=== PATIENT | male | born 1940 | race Caucasian/White ===

== ENCOUNTER 2016-06-29 16:49 | Inpatient (IN) | payer OTHER, MEDICARE ==
[~2016-06-29] VITALS: Ht 177.8 cm; Wt 87.2 kg
--- NOTE | 2016-06-29 16:53 | PD ---
HPI . right great toe injury while fishing Chief Complaint: Injury Time Seen by Provider: 16:53 Travel History International Travel<30 days: No Contact w/Intl Traveler<30days: No Traveled to known affect area: No History of Present Illness HPI 76-year-old male with history of diabetes, hypertension, CAD, old heart attack, defibrillator/pacemaker, or disorder here with complaints of a right great toe injury while fishing. Patient was fishing and states that he tripped and cut his right great toe on a clamshell. He was brought in the [facility] as his toe is partially hanging on. He denies any pain on examination. 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 He is up to date on tetanus vaccine and received it last year. He needs immediate xray and podiatry was consulted. [facility] Past Medical History Diabetes: Yes Hypertension: Yes Myocardial Infarction: Yes Past Surgical History Coronary Artery Bypass Graft: Yes Pacemaker: Yes Social History Tobacco Use: Yes Allergies-Medications (Allergen,Severity, Reaction): Coded Allergies: No Known Allergies (Unverified , 06/29/16) Reported Meds & Prescriptions Reported Meds & Active Scripts Active Reported Lyrica (Pregabalin) 150 Mg Cap 150 Mg PO TID Lactobacillus Acidophilus 1 Tab Tab 2 Tab PO DAILY Lisinopril 10 Mg Tab 10 Mg PO DAILY Meclizine (Meclizine HCl) 25 Mg Tab 25 Mg PO TID PRN Januvia (Sitagliptin Phosphate) 100 Mg Tab 100 Mg PO DAILY Clonazepam 2 Mg Tab 2 Mg PO HS Digoxin 0.125 Mg Tab 0.125 Mg PO DAILY Tamsulosin (Tamsulosin HCl) 0.4 Mg Cap 0.4 Mg PO HS Carvedilol 6.25 Mg Tab 6.25 Mg PO BID Creon (Amylase/Lipase/Protease) 24,000-76,000-120,000 Units Cap 1 Cap PO TIDPC Ditropan (Oxybutynin Chloride) 5 Mg Tab 5 Mg PO Q12HR Donepezil 10 Mg Tab 10 Mg PO HS Review of Systems General / Constitutional: No: Fever Eyes: No: Visual changes HENT: No: Headaches Cardiovascular: No: Chest Pain or Discomfort Respiratory: No: Shortness of Breath Gastrointestinal: No: Abdominal Pain Genitourinary: No: Dysuria Musculoskeletal: Positive: Other (right great toe partial amputation), No: Pain Skin: No Rash Neurologic: No: Weakness Psychiatric: No: Depression Endocrine: No: Polydipsia Hematologic/Lymphatic: No: Easy Bruising Physical Exam Narrative GENERAL: AAO x 3, no acute distress, Well-nourished, well-developed patient. SKIN: Warm and dry. No visible rashes or bruising. HEAD: Normocephalic and atraumatic. EYES: No scleral icterus. No injection or drainage. ENT: No nasal drainage noted. Mucous membranes pink. Airway patent. NECK: Supple, trachea midline. No JVD. CARDIOVASCULAR: Regular rate and rhythm. RESPIRATORY: Breath sounds equal bilaterally. No accessory muscle use. No rhonchi or rales. GASTROINTESTINAL: Abdomen soft, non-tender, nondistended. EXTREMITIES: No cyanosis or edema. Right great toe partial amputation at distal end.There seems to be bone involvement. Sensation is intact. BACK: Nontender without obvious deformity. No CVA tenderness. PSYCH: AAO x 3, normal affect. Data Data Last Documented VS Vital Signs Date Time Temp Pulse Resp B/P Pulse Ox O2 Delivery O2 Flow Rate FiO2 06/29/16 16:57 97.3 54 16 148/85 98 Orders Foot, Complete (Ryt4iqu) (06/29/16 16:53) Lidocaine 1% Inj (50 Ml) (Xylocaine 1% I (06/29/16 17:30) Complete Blood Count With Diff (06/29/16 17:33) Comprehensive Metabolic Panel (06/29/16 17:33) Consult Podiatry (06/29/16 ) Prothrombin Time / Inr (Pt) (06/29/16 18:26) Act Partial Throm Time (Ptt) (06/29/16 18:26) (Hub Use Only)Inp Phy Cons/Ref (06/29/16 ) Diet Npo (06/29/16 Dinner) Admit Order (Ed Use Only) (06/29/16 19:05) Labs Laboratory Tests Test 06/29/16 18:00 White Blood Count 9.9 TH/MM3 Red Blood Count 5.18 MIL/MM3 Hemoglobin 16.0 GM/DL Hematocrit 46.5 % Mean Corpuscular Volume 89.8 FL Mean Corpuscular Hemoglobin 30.8 PG Mean Corpuscular Hemoglobin 34.3 % Concent Red Cell Distribution Width 12.8 % Platelet Count 164 TH/MM3 Mean Platelet Volume 9.2 FL Neutrophils (%) (Auto) 67.7 % Lymphocytes (%) (Auto) 21.5 % Monocytes (%) (Auto) 6.7 % Eosinophils (%) (Auto) 3.3 % Basophils (%) (Auto) 0.8 % Neutrophils # (Auto) 6.7 TH/MM3 Lymphocytes # (Auto) 2.1 TH/MM3 Monocytes # (Auto) 0.7 TH/MM3 Eosinophils # (Auto) 0.3 TH/MM3 Basophils # (Auto) 0.1 TH/MM3 CBC Comment DIFF FINAL Differential Comment Prothrombin Time 11.4 SEC Prothromb Time International 1.0 RATIO Ratio Activated Partial 27.8 SEC Thromboplast Time Sodium Level 141 MEQ/L Potassium Level 3.6 MEQ/L Chloride Level 106 MEQ/L Carbon Dioxide Level 25.4 MEQ/L Anion Gap 10 MEQ/L Blood Urea Nitrogen 12 MG/DL Creatinine 1.00 MG/DL Estimat Glomerular Filtration 73 ML/MIN Rate Random Glucose 131 MG/DL Calcium Level 9.2 MG/DL Total Bilirubin 0.5 MG/DL Aspartate Amino Transf 53 U/L (AST/SGOT) Alanine Aminotransferase 40 U/L (ALT/SGPT) Alkaline Phosphatase 119 U/L Total Protein 7.9 GM/DL Albumin 3.7 GM/DL [facility] Medical Decision Making Medical Screen Exam Complete: Yes Emergency Medical Condition: Yes Medical Record Reviewed: Yes Differential Diagnosis partial toe amputation, distal tuft fracture, abrasion Narrative Course 76-year-old male with history of diabetes, hypertension, CAD, old heart attack, defibrillator/pacemaker, or disorder here with complaints of a right great toe injury while fishing. Patient was fishing and states that he tripped and cut his right great toe on a clamshell. He was brought in the [facility] as his toe is partially hanging on. He denies any pain on examination. 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 He is up to date on tetanus vaccine and received it last year. He needs immediate xray and podiatry was consulted. Patient seen and examined. Case discussed with Dr. Danielson. We have reached out to podiatry for consultation. (Dr. Rodgers) Recommend admission, IV antibiotics and surgical cleaning of this wound tomorrow. Patient has been admitted and will be prepped for this procedure. Laboratory Tests Test 06/29/16 18:00 White Blood Count 9.9 TH/MM3 Red Blood Count 5.18 MIL/MM3 Hemoglobin 16.0 GM/DL Hematocrit 46.5 % Mean Corpuscular Volume 89.8 FL Mean Corpuscular Hemoglobin 30.8 PG Mean Corpuscular Hemoglobin 34.3 % Concent Red Cell Distribution Width 12.8 % Platelet Count 164 TH/MM3 Mean Platelet Volume 9.2 FL Neutrophils (%) (Auto) 67.7 % Lymphocytes (%) (Auto) 21.5 % Monocytes (%) (Auto) 6.7 % Eosinophils (%) (Auto) 3.3 % Basophils (%) (Auto) 0.8 % Neutrophils # (Auto) 6.7 TH/MM3 Lymphocytes # (Auto) 2.1 TH/MM3 Monocytes # (Auto) 0.7 TH/MM3 Eosinophils # (Auto) 0.3 TH/MM3 Basophils # (Auto) 0.1 TH/MM3 CBC Comment DIFF FINAL Differential Comment Prothrombin Time 11.4 SEC Prothromb Time International 1.0 RATIO Ratio Activated Partial 27.8 SEC Thromboplast Time Sodium Level 141 MEQ/L Potassium Level 3.6 MEQ/L Chloride Level 106 MEQ/L Carbon Dioxide Level 25.4 MEQ/L Anion Gap 10 MEQ/L Blood Urea Nitrogen 12 MG/DL Creatinine 1.00 MG/DL Estimat Glomerular Filtration 73 ML/MIN Rate Random Glucose 131 MG/DL Calcium Level 9.2 MG/DL Total Bilirubin 0.5 MG/DL Aspartate Amino Transf 53 U/L (AST/SGOT) Alanine Aminotransferase 40 U/L (ALT/SGPT) Alkaline Phosphatase 119 U/L Total Protein 7.9 GM/DL Albumin 3.7 GM/DL Last 24 hours Impressions Foot X-Ray 06/29/16 1653 Signed Impressions: Service Date/Time: Wednesday, June 29, 2016 16:57 - CONCLUSION: 1. Fracture distal phalanx great toe. Jamar Foster MD the wound was properly irrigated and wrapped in a clean sterile dressing. Patient tolerated without incident. Labs were obtained. Patient was given levaquin and vancomycin. He is not in pain. We discussed his admission with him and he is in agreement. Patient verbalized understanding of instructions & questions were answered. Diagnosis Primary Impression: Open fracture of distal phalanx of right great toe Qualified Code: S92.424B - Open nondisplaced fracture of distal phalanx of right great toe, initial encounter Additional Impression: Laceration of right great toe Qualified Code: S91.111A - Laceration of right great toe without foreign body present, nail damage status unspecified, initial encounter Admitting Information Admitting Physician Requests: Admit Condition: Stable Rubina Carrera Jun 29, 2016 16:53
[2016-06-29 16:57] VITALS: BP 148/85; PULSE 54; RESP 16; TEMP 97.3; O2SAT 98
[2016-06-29] MEDS ORDERED: CARV6.252 PO (16:58)
[2016-06-29] MEDS ORDERED: MECL-62 PO (16:58)
[2016-06-29] MEDS ORDERED: LISI10TA3 PO (16:58)
[2016-06-29] MEDS ORDERED: LYRI150C PO (16:58)
[2016-06-29] MEDS ORDERED: CLON2TAB PO (16:58)
[2016-06-29] MEDS ORDERED: TAMS0.4C4 PO (16:58)
[2016-06-29] MEDS ORDERED: CREON24 PO (16:58)
[2016-06-29] MEDS ORDERED: DIGO0.12 PO (16:58)
[2016-06-29] MEDS ORDERED: DONE10TA7 PO (16:58)
[2016-06-29] MEDS ORDERED: SITA1TAB2 PO (16:58)
[2016-06-29] MEDS ORDERED: LACTTAB8 PO (16:58)
[2016-06-29] MEDS ORDERED: OXYB5TAB10 PO (16:58)
--- NOTE | 2016-06-29 17:20 | RADHPO ---
EXAM DATE/TIME: 06/29/2016 16:57 [place] COMPARISON: No previous studies available for comparison. INDICATIONS : Right great toe laceration from clam shell today MEDICAL HISTORY : None. SURGICAL HISTORY : None. ENCOUNTER: Initial ACUITY: 1 day PAIN SCORE: 2/10 LOCATION: Right great toe FINDINGS: There is a transverse fracture of the distal phalanx of the great toe without intra-articular extensi on. No foreign body is identified. There is dorsal angulation of the apex of the fracture. An inferio r calcaneal spur is present. CONCLUSION: 1. Fracture distal phalanx great toe. Jamar Foster MD on June 29, 2016 at 17:17 Board Certified Radiologist. This report was verified electronically.
[2016-06-29] MEDS ORDERED: LIDOCAINE HCL 1% 50 ML VIAL INFIL ONE (17:30)
[2016-06-29 18:06] LABS: AUTOMATED NEUTROPHIL # 6.7 TH/MM3 (1.8-7.7); BASOPHIL # 0.1 TH/MM3 (0-0.2); BASOPHIL % 0.8 % (0.0-2.0); EOSINOPHIL # 0.3 TH/MM3 (0-0.4); EOSINOPHIL % 3.3 % (0.0-4.0); HEMATOCRIT 46.5 % (39.0-51.0); HEMO FLAGS DIFF FINAL; LYMPH % 21.5 % (9.0-44.0); LYMPHOCYTE # 2.1 TH/MM3 (1.0-4.8); MEAN CELL VOLUME 89.8 FL (80.0-100.0); MEAN CORPUSCULAR HEMOGLOBIN 30.8 PG (27.0-34.0); MEAN CORPUSCULAR HGB CONC 34.3 % (32.0-36.0); MONO % 6.7 % (0.0-8.0); NEUT % 67.7 % (16.0-70.0); PLATELET COUNT 164 TH/MM3 (150-450); RED BLOOD COUNT 5.18 MIL/MM3 (4.50-5.90); RED CELL DISTRIBUTION WIDTH 12.8 % (11.6-17.2); WHITE BLOOD COUNT 9.9 TH/MM3 (4.0-11.0)
--- NOTE | 2016-06-29 18:13 | PD ---
Data Data Last Documented VS Vital Signs Date Time Temp Pulse Resp B/P Pulse Ox O2 Delivery O2 Flow Rate FiO2 06/29/16 16:57 97.3 54 16 148/85 98 Orders Foot, Complete ([id number]) (06/29/16 16:53) Lidocaine 1% Inj (50 Ml) (Xylocaine 1% I (06/29/16 17:30) Complete Blood Count With Diff (06/29/16 17:33) Comprehensive Metabolic Panel (06/29/16 17:33) Consult Podiatry (06/29/16 ) Prothrombin Time / Inr (Pt) (06/29/16 18:26) Act Partial Throm Time (Ptt) (06/29/16 18:26) (Hub Use Only)Inp Phy Cons/Ref (06/29/16 ) Diet Npo (06/29/16 Dinner) Labs Laboratory Tests Test 06/29/16 18:00 White Blood Count 9.9 TH/MM3 Red Blood Count 5.18 MIL/MM3 Hemoglobin 16.0 GM/DL Hematocrit 46.5 % Mean Corpuscular Volume 89.8 FL Mean Corpuscular Hemoglobin 30.8 PG Mean Corpuscular Hemoglobin 34.3 % Concent Red Cell Distribution Width 12.8 % Platelet Count 164 TH/MM3 Mean Platelet Volume 9.2 FL Neutrophils (%) (Auto) 67.7 % Lymphocytes (%) (Auto) 21.5 % Monocytes (%) (Auto) 6.7 % Eosinophils (%) (Auto) 3.3 % Basophils (%) (Auto) 0.8 % Neutrophils # (Auto) 6.7 TH/MM3 Lymphocytes # (Auto) 2.1 TH/MM3 Monocytes # (Auto) 0.7 TH/MM3 Eosinophils # (Auto) 0.3 TH/MM3 Basophils # (Auto) 0.1 TH/MM3 CBC Comment DIFF FINAL Differential Comment Sodium Level 141 MEQ/L Potassium Level 3.6 MEQ/L Chloride Level 106 MEQ/L Carbon Dioxide Level 25.4 MEQ/L Anion Gap 10 MEQ/L Blood Urea Nitrogen 12 MG/DL Creatinine 1.00 MG/DL Estimat Glomerular Filtration 73 ML/MIN Rate Random Glucose 131 MG/DL Calcium Level 9.2 MG/DL Total Bilirubin 0.5 MG/DL Aspartate Amino Transf 53 U/L (AST/SGOT) Alanine Aminotransferase 40 U/L (ALT/SGPT) Alkaline Phosphatase 119 U/L Total Protein 7.9 GM/DL Albumin 3.7 GM/DL MDM Supervised Visit with RENÉ: Yes Narrative Course I, Dr. Danielson, have reviewed the advance practice practitioner's documentation and am in agreement, met with the patient face to face, made the diagnosis, and the medical decision making was done by me. See her note for further details. Briefly this is a 76-year-old male with history of diabetes, hypertension, here for evaluation of right great toe injury. The patient was fishing in the ocean when he sustained a laceration to his right great toe on a clamshell. He is denying any pain in his toe. He denies any other injuries. On physical exam. Is a partial amputation of the right great toe with a deep laceration to the dorsal aspect of the toe crossing the base of the toenail. No visible contaminants. There is normal capillary refill in the distal aspect of the toe and normal pinpoint sensation. Right foot x-ray shows a fracture of the distal phalanx. Case discussed with on-call carton stamper Dr. Rodgers who recommends irrigating the laceration and starting the patient on broad-spectrum antibiotics and admission to the [facility] hospital where she will taken to the OR tomorrow for further washout because the patient is a diabetic. Patient will be started on vancomycin and Levaquin. Toe laceration was thoroughly irrigated with approximately 2 L of normal saline. Xeroform and sterile dressing applied. He was made aware of all findings and plan for admission. Patient will be NPO after breakfast tomorrow. Case discussed with hospitalist Dr. Mortensen who will admit the patient to her service to the [facility] hospital. Diagnosis Primary Impression: Open fracture of distal phalanx of right great toe Qualified Code: S92.424B - Open nondisplaced fracture of distal phalanx of right great toe, initial encounter Additional Impression: Laceration of right great toe Qualified Code: S91.111A - Laceration of right great toe without foreign body present, nail damage status unspecified, initial encounter Admitting Information Admitting Physician Requests: Observation Moiz Danielson MD Jun 29, 2016 18:13
[2016-06-29 18:14] LABS: CHLORIDE 106 MEQ/L (98-107); POTASSIUM 3.6 MEQ/L (3.5-5.1); SODIUM (NA) 141 MEQ/L (136-145)
[2016-06-29 18:18] LABS: ANION GAP 10 MEQ/L (5-15); BICARBONATE 25.4 MEQ/L (21.0-32.0); BLOOD UREA NITROGEN 12 MG/DL (7-18)
[2016-06-29 18:21] LABS: ALT (GPT) 40 U/L (12-78); AST (GOT) 53 U/L (15-37); GLOMERULAR FILTRATION RATE 73 ML/MIN (>89)
[2016-06-29 18:23] LABS: TOTAL BILIRUBIN ADULT 0.5 MG/DL (0.2-1.0)
[2016-06-29 18:24] LABS: ALKALINE PHOSPHATASE 119 U/L (45-117)
[2016-06-29 19:06] LABS: APTT (PATIENT) 27.8 SEC (24.3-30.1); PROTHROMBIN TIME - PATIENT 11.4 SEC (9.8-11.6)
[2016-06-29 19:21] VITALS: BP 123/67; PULSE 67; RESP 16; O2SAT 97
[2016-06-29] MEDS ORDERED: VANCOMYCIN INJ 1,200 MG in SODIUM CHLOR 0.9% 250 ML INJ 250 ML IV ONE (19:45)
[2016-06-29] MEDS ORDERED: LEVOFLOXACIN 750 MG PREMIX INJ 150 ML IV ONE (19:45)
[2016-06-29] MEDS ORDERED: SODIUM CHLORIDE 0.9% FLUSH 5 ML FLUSH FLUSH PRN (20:45)
[2016-06-29] MEDS ORDERED: NALOXONE HCL 0.4 MG/ML AMP IV PRN (20:45)
[2016-06-29] MEDS ORDERED: ONDANSETRON HCL 4 MG/2 ML VIAL IVP PRN (20:45)
[2016-06-29] MEDS ORDERED: DEXTROSE 50% IN WATER 50 ML VIAL(D50) IV PUSH PRN (21:00)
[2016-06-29] MEDS ORDERED: Vancomycin Consult Pharmacy 1 EA OTHER SCH (21:00)
[2016-06-29] MEDS ORDERED: GLUCAGON 1 MG/ML VIAL OTHER PRN (21:00)
[2016-06-29] MEDS: SODIUM CHLORIDE 0.9% FLUSH 5 ML FLUSH FLUSH SCH (21:00)
[2016-06-29 21:06] LABS: MEAN CORPUSCULAR HGB CONC 36.3 % (32.0-36.0)
[2016-06-29 21:09] VITALS: BP 130/69; PULSE 56; RESP 18; O2SAT 98
[2016-06-29 22:50] VITALS: BP 138/96; PULSE 54; RESP 18; TEMP 98.2; O2SAT 99
[2016-06-30] VITALS (7 sets, daily range): BP systolic 102–128; BP diastolic 57–83; PULSE 66–86; RESP 18–20; TEMP 96.6–98.3; O2SAT 95–97
[2016-06-30] MEDS ORDERED: ceFAZolin INJ 1,000 MG VIAL ONE ×2 (03:01→05:15)
[2016-06-30] MEDS ORDERED: GENTAMICIN SULFATE 80 MG/2 ML VIAL ONE (03:01)
[2016-06-30] MEDS ORDERED: BUPIVACAINE HCL PF 0.25% 30 ML VIAL ONE (03:01)
--- NOTE | 2016-06-30 03:16 | HHI.HP ---
[facility] Primary Care Physician Non-Staff Admission Diagnosis open fracture right great toe Diagnoses: (1) Open fracture of distal phalanx of right great toe (2) Laceration of right great toe Chief Complaint: Right great toe laceration Travel History International Travel<30 Days: No Contact w/Intl Traveler <30 Da: No Traveled to Known Affected Are: No History of Present Illness Mr. Winn is a 76-year-old male with a past medical history of type 2 diabetes mellitus, hypertension, coronary artery disease status post stent placement, defibrillator/pacemaker, and prostate cancer who presented to the emergency room for evaluation of a wound on his foot. The patient was brought in via EMS and the emergency room physician sugar laboratory assistant notes that his right great toe was "partially hanging on". X-ray in the ER shows fracture of distal phalanx of the great toe. The patient reports that he was out [place] with a friend. He states that the tide was coming in and they kept having to get up and move their chairs out further away from the deeper water. During the last time that they move their chairs, his friends have blue into the circumflex that he chased after and felt something sharp on his toe. He states he didn't even realize he had cut the toe until he went to put his shoe on. He states it was a partially buried upright clamshell that he had stepped on. He denies any pain. He denies any history of liver or kidney problems, breathing problems, and denies requiring home oxygen. He denies chest pain, shortness of breath, nausea , vomiting, fevers. He does report an intentional weight loss since January that he relates to chronic diarrhea. He has some urinary frequency and hesitancy since prostate cancer treatment. He also reports some gait instability with that he was supposed to start physical therapy for this week. . 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 Past Surgical History Pacemaker/Defibrillator 2007 CABG 1984 Back surgery 3 times Colonoscopy x 5 because of polyps Bilateral carpal tunnel release . Reported Medications Reported Meds & Active Scripts Active Reported Lyrica (Pregabalin) 150 Mg Cap 150 Mg PO TID Lactobacillus Acidophilus 1 Tab Tab 2 Tab PO DAILY Lisinopril 10 Mg Tab 10 Mg PO DAILY Meclizine (Meclizine HCl) 25 Mg Tab 25 Mg PO TID PRN Januvia (Sitagliptin Phosphate) 100 Mg Tab 100 Mg PO DAILY Clonazepam 2 Mg Tab 2 Mg PO HS Digoxin 0.125 Mg Tab 0.125 Mg PO DAILY Tamsulosin (Tamsulosin HCl) 0.4 Mg Cap 0.4 Mg PO HS Carvedilol 6.25 Mg Tab 6.25 Mg PO BID Creon (Amylase/Lipase/Protease) 24,000-76,000-120,000 Units Cap 1 Cap PO TIDPC Ditropan (Oxybutynin Chloride) 5 Mg Tab 5 Mg PO Q12HR Donepezil 10 Mg Tab 10 Mg PO HS . Allergies: Coded Allergies: No Known Allergies (Unverified , 06/29/16) Active Ordered Medications Current Medications Lidocaine HCl 10 ml 10 ml ONCE ONCE INFIL Last administered on 06/29/16 17:23 ; Start 06/29/16 at 17:30; Stop 06/29/16 at 17:31; Status DC Vancomycin HCl 1200 mg/Sodium Chloride 262 ml @ 250 mls/hr ONCE ONCE IV Last administered on 06/29/16 21:05; Start 06/29/16 at 19:45; Stop 06/29/16 at 20:47; Status DC Levofloxacin/ Dextrose (Levaquin 750 Mg Premix Inj) 150 ml @ 100 mls/hr ONCE ONCE IV Last administered on 06/29/16 19:47; Start 06/29/16 at 19:45; Stop at 21:14; Status DC IV Flush (NS Flush) 2 ml UNSCH PRN FLUSH FLUSH AFTER USING IV ACCESS; Start 06/29/16 at 20:45 IV Flush (NS Flush) 2 ml BID FLUSH ; Start 06/29/16 at 21:00 Ondansetron HCl (Zofran Inj) 4 mg Q6H PRN IVP NAUSEA OR VOMITING; Start at 20:45 Naloxone HCl 0.4 mg 0.4 mg UNSCH PRN IV SEE LABEL COMMENTS; Start 06/29/16 at 20 :45 Pharmacy Profile Note 0 ml @ 0 mls/hr UNSCH OTHER ; Start 06/29/16 at 21:00 Levofloxacin/ Dextrose (Levaquin 750 Mg Premix Inj) 150 ml @ 100 mls/hr Q24H IV ; Start 06/30/16 at 21:00 Dextrose (D50w (Vial) Inj) 25 ml UNSCH PRN IV PUSH HYPOGLYCEMIA-SEE COMMENTS; Start 06/29/16 at 21:00 Glucagon 1 mg 1 mg UNSCH PRN OTHER HYPOGLYCEMIA-SEE COMMENTS; Start 06/29/16 at 21:00 Vancomycin HCl/ Sodium Chloride (Vancomycin Inj/ NS 250 ml Inj) 250 ml @ 250 mls/hr Q12H IV ; Start 06/30/16 at 09:00 Miscellaneous Information SPECIFIC LAB TO BE DRAWN:VANCO TROUGH DATE TO BE DR... ONCE ONCE XX ; Start 07/01/16 at 08:45; Stop 07/01/16 at 08:46 . Family History Father of a CVA . 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 Physical Exam Vital Signs Vital Signs Date Time Temp Pulse Resp B/P Pulse Ox O2 Delivery O2 Flow Rate FiO2 06/30/16 00:01 66 06/29/16 22:50 98.2 54 18 138/96 99 06/29/16 21:09 56 18 130/69 98 Room Air 06/29/16 19:21 67 16 123/67 97 Room Air 06/29/16 16:57 97.3 54 16 148/85 98 Physical Exam GENERAL: This is a pleasant elderly male patient, in no apparent distress. SKIN: No rashes, ecchymoses. Cool and dry. Right great toe bandaged with minimal blood drainage noted; did not visualize actually wound as it would not change medical management and the toe is said to be nearly amputated. Left chest wall with AICD/pacemaker. HEAD: Atraumatic. Normocephalic. EYES: No scleral icterus. No injection or drainage. ENT: Nose without bleeding, purulent drainage. NECK: Trachea midline. No JVD or lymphadenopathy. CARDIOVASCULAR: Regular rate and rhythm without murmurs, gallops, or rubs. RESPIRATORY: Clear to auscultation. Breath sounds equal bilaterally. No wheezes , rales, or rhonchi. GASTROINTESTINAL: Abdomen soft, non-tender, nondistended. No guarding. MUSCULOSKELETAL: Extremities without clubbing, cyanosis, or edema. No calf tenderness. NEUROLOGICAL: Awake and alert. Motor and sensory grossly within normal limits. Normal speech. . Laboratory Laboratory Tests Test 06/29/16 18:00 White Blood Count 9.9 Red Blood Count 5.18 Hemoglobin 16.0 Hematocrit 46.5 Mean Corpuscular Volume 89.8 Mean Corpuscular Hemoglobin 30.8 Mean Corpuscular Hemoglobin 34.3 Concent Red Cell Distribution Width 12.8 Platelet Count 164 Mean Platelet Volume 9.2 Neutrophils (%) (Auto) 67.7 Lymphocytes (%) (Auto) 21.5 Monocytes (%) (Auto) 6.7 Eosinophils (%) (Auto) 3.3 Basophils (%) (Auto) 0.8 Neutrophils # (Auto) 6.7 Lymphocytes # (Auto) 2.1 Monocytes # (Auto) 0.7 Eosinophils # (Auto) 0.3 Basophils # (Auto) 0.1 CBC Comment DIFF FINAL Differential Comment Prothrombin Time 11.4 Prothromb Time International 1.0 Ratio Activated Partial 27.8 Thromboplast Time Sodium Level 141 Potassium Level 3.6 Chloride Level 106 Carbon Dioxide Level 25.4 Anion Gap 10 Blood Urea Nitrogen 12 Creatinine 1.00 Estimat Glomerular Filtration 73 Rate Random Glucose 131 Calcium Level 9.2 Total Bilirubin 0.5 Aspartate Amino Transf 53 (AST/SGOT) Alanine Aminotransferase 40 (ALT/SGPT) Alkaline Phosphatase 119 Total Protein 7.9 Albumin 3.7 Result Diagram: 06/29/16 1800 06/29/16 1800 Imaging Last Impressions Foot X-Ray 06/29/16 1653 Signed Impressions: Service Date/Time: Wednesday, June 29, 2016 16:57 - CONCLUSION: 1. Fracture distal phalanx great toe. Jamar Foster MD . Assessment and Plan Problem List: (1) Open fracture of distal phalanx of right great toe ICD Code: S92.421B Status: Acute (2) Laceration of right great toe ICD Code: S91.111A Status: Acute Assessment and Plan Open fracture of distal phalanx of right great toe Laceration of right great toe - Consultation of Dr. Rodgers occupational health physician - Patient for surgical repair this morning - Levaquin 750 mg IV every 24 hours - Vancomycin 1000 g every 12 hours with pharmacy consultation for assistance with therapeutic monitoring and dosing - Consult physical therapy Type 2 diabetes mellitus - Hold Januvia for now - Accu-Cheks before meals and at bedtime - Monitor trends and blood glucose levels and adjust treatments as indicated - Treatment of hypoglycemia protocol ordered Written by Kym Haq, acting as scribe for Dr. Mortensen on 06/30/16 at 03:15. .All or portions of this note were transcribed by scribe [Kym Haq]. I, Dr. Nichole Mortensen personally performed the history, physical exam, and medical decision making; and confirmed the accuracy of the information in the transcribed note. Authenticated by Dr. Nichole Mortensen on 06/30/16 at 03:15. Discussed Condition With ER physician, RN, and patient Physician Certification 2 Midnight Certification Type: Admission for Inpatient Services Order for Inpatient Services The services are ordered in accordance with Medicare regulations or non- Medicare payer requirements, as applicable. In the case of services not specified as inpatient-only, they are appropriately provided as inpatient services in accordance with the 2-midnight benchmark. Estimated LOS (days): 3 days is the estimated time the patient will need to remain in the hospital, assuming treatment plan goals are met and no additional complications. Post-Hospital Plan: Not yet determined Problem Qualifiers (1) Open fracture of distal phalanx of right great toe: Qualified Code: S92.424B - Open nondisplaced fracture of distal phalanx of right great toe, initial encounter (2) Laceration of right great toe: Qualified Code: S91.111A - Laceration of right great toe without foreign body present, nail damage status unspecified, initial encounter Kym Haq Jun 30, 2016 03:16 Nichole Mortensen MD Jun 30, 2016 08:51
[2016-06-30 04:58] LABS: AUTOMATED NEUTROPHIL # 5.6 TH/MM3 (1.8-7.7); BASOPHIL # 0.1 TH/MM3 (0-0.2); BASOPHIL % 0.8 % (0.0-2.0); EOSINOPHIL # 0.4 TH/MM3 (0-0.4); EOSINOPHIL % 4.2 % (0.0-4.0); HEMATOCRIT 41.6 % (39.0-51.0); LYMPH % 23.9 % (9.0-44.0); LYMPHOCYTE # 2.1 TH/MM3 (1.0-4.8); MEAN CELL VOLUME 88.3 FL (80.0-100.0); MONO % 7.7 % (0.0-8.0); NEUT % 63.4 % (16.0-70.0); PLATELET COUNT 158 TH/MM3 (150-450); RED BLOOD COUNT 4.71 MIL/MM3 (4.50-5.90); RED CELL DISTRIBUTION WIDTH 13.7 % (11.6-17.2); WHITE BLOOD COUNT 8.8 TH/MM3 (4.0-11.0)
[2016-06-30 04:59] LABS: HEMO FLAGS AUTO DIFF
--- NOTE | 2016-06-30 05:17 | PD.CONS ---
History of Present Illness Service Podiatry Consult Requested By ED Reason for Consult R great toe open fracture Primary Care Physician Non-Staff Diagnoses: History of Present Illness Mr. Winn is a 76-year-old male with a past medical history of type 2 diabetes mellitus, hypertension, coronary artery disease status post stent placement, defibrillator/pacemaker, and prostate cancer who presented to the emergency room in for open fracture R great toe. He [place] and felt something sharp cut on his toe and did not realize it had been cut until he put his shoes on. This occurred early afternoon yesterday. he thinks it was a clam shell. 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 Back and neck fractures Prostate CA s/p radioactive seed implantation Polio - when born Past Surgical History Pacemaker/Defibrillator 2006 CABG 1984 Back surgery 3 times Colonoscopy x 5 because of polyps Bilateral carpal tunnel release Active Ordered Medications Current Medications Medications (Trade) Dose Ordered Sig/Castro Route Start Time Stop Time Status Last Admin (NS Flush) 2 ml UNSCH PRN FLUSH 06/29/16 20:45 (NS Flush) 2 ml BID FLUSH 06/29/16 21:00 (Zofran Inj) 4 mg Q6H PRN IVP 06/29/16 20:45 Naloxone HCl 0.4 mg 0.4 mg UNSCH PRN IV 06/29/16 20:45 Pharmacy Profile Note 0 ml @ 0 mls/hr UNSCH OTHER 06/29/16 21:00 (Levaquin 750 Mg Premix Inj) 150 ml @ 100 mls/hr Q24H IV 06/30/16 21:00 (D50w (Vial) Inj) 25 ml UNSCH PRN IV PUSH 06/29/16 21:00 Glucagon 1 mg 1 mg UNSCH PRN OTHER 06/29/16 21:00 (Vancomycin Inj/ NS 250 ml Inj) 250 ml @ 250 mls/hr Q12H IV 06/30/16 09:00 Miscellaneous Information SPECIFIC LAB TO BE DRAWN:RA TROUGH DATE TO BE . 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 Physical Exam Vital Signs Vital Signs Date Time Temp Pulse Resp B/P Pulse Ox O2 Delivery O2 Flow Rate FiO2 06/30/16 00:01 66 06/29/16 22:50 98.2 54 18 138/96 99 06/29/16 21:09 56 18 130/69 98 Room Air 06/29/16 19:21 67 16 123/67 97 Room Air 06/29/16 16:57 97.3 54 16 148/85 98 Physical Exam R hallux with dorsal laceration at base of nail, involving nail. Exposed bone with transverse fracture visible just distal to IP joint level. No gross contamination noted. No debris noted in wound. Bleeds readily. Capillary refill to digits. Sensation intact. Laboratory Laboratory Tests Test 06/29/16 06/30/16 18:00 04:26 White Blood Count 9.9 8.8 Red Blood Count 5.18 4.71 Hemoglobin 16.0 15.1 Hematocrit 46.5 41.6 Mean Corpuscular Volume 89.8 88.3 Mean Corpuscular Hemoglobin 30.8 32.0 Mean Corpuscular Hemoglobin 34.3 36.3 Concent Red Cell Distribution Width 12.8 13.7 Platelet Count 164 158 Mean Platelet Volume 9.2 9.7 Neutrophils (%) (Auto) 67.7 63.4 Lymphocytes (%) (Auto) 21.5 23.9 Monocytes (%) (Auto) 6.7 7.7 Eosinophils (%) (Auto) 3.3 4.2 Basophils (%) (Auto) 0.8 0.8 Neutrophils # (Auto) 6.7 5.6 Lymphocytes # (Auto) 2.1 2.1 Monocytes # (Auto) 0.7 0.7 Eosinophils # (Auto) 0.3 0.4 Basophils # (Auto) 0.1 0.1 CBC Comment DIFF FINAL AUTO DIFF Differential Comment Prothrombin Time 11.4 Prothromb Time International 1.0 Ratio Activated Partial 27.8 Thromboplast Time Sodium Level 141 Potassium Level 3.6 Chloride Level 106 Carbon Dioxide Level 25.4 Anion Gap 10 Blood Urea Nitrogen 12 Creatinine 1.00 Estimat Glomerular Filtration 73 Rate Random Glucose 131 Calcium Level 9.2 Total Bilirubin 0.5 Aspartate Amino Transf 53 (AST/SGOT) Alanine Aminotransferase 40 (ALT/SGPT) Alkaline Phosphatase 119 Total Protein 7.9 Albumin 3.7 Result Diagram: 06/30/16 0426 06/29/16 1800 Imaging Last Impressions Foot X-Ray 06/29/16 1653 Signed Impressions: Service Date/Time: Wednesday, June 29, 2016 16:57 - CONCLUSION: 1. Fracture distal phalanx great toe. Jamar Foster MD Assessment and Plan Assessment and Plan R great toe, open fracture, displaced, distal phalanx Start IV antibiotics and tetanus protocol To OR for I&D open fracture Will need to wear surgical shoe at all times. Discussed with patient he will have a pin in his toe. It will be OK to bear weight in surgical shoe at all times. Has gait stability issues and needs eval by PT with their recommendations. Await operative cultures. Cannot be discharged without clean cultures. Patient states he is leaving tomorrow no matter what. Barry Rodgers DPM Jun 30, 2016 05:17
[2016-06-30 05:35] LABS: BICARBONATE 24.2 MEQ/L (21.0-32.0); POTASSIUM 3.3 MEQ/L (3.5-5.1)
[2016-06-30] MEDS ORDERED: DO NOT ADM ANY ANTICOAGULANT DRUGS XX PRN (06:30)
[2016-06-30] MEDS ORDERED: POTASSIUM CHLORIDE 20 MEQ CONTROLLED RELEASE TAB PO ONE (07:00)
[2016-06-30] MEDS ORDERED: MORPHINE SULFATE 4 MG/ML INJ IV PRN (07:00)
[2016-06-30] MEDS ORDERED: ACETAMINOPHEN/HYDROcodone 325 MG/7.5 MG TAB PO PRN (07:00)
[2016-06-30] MEDS ORDERED: SENNOSIDES 8.6 MG TAB PO PRN (07:00)
[2016-06-30] MEDS ORDERED: ACETAMINOPHEN 325 MG TAB PO PRN ×2 (07:00)
[2016-06-30] MEDS ORDERED: BISACODYL 10 MG SUPP PR PRN (07:00)
[2016-06-30] MEDS ORDERED: ACETAMINOPHEN/HYDROcodone 325 MG/5 MG TAB PO PRN (07:00)
[2016-06-30] MEDS ORDERED: MAGNESIUM HYDROXIDE SUSP 30 ML CUP PO PRN (07:00)
--- NOTE | 2016-06-30 07:00 | HHI.PR ---
Immediate Post Op Note Procedure Date: Jun 30, 2016 Pre Op Diagnosis: Open fracture right great toe, distal phalanx, displaced, extraarticular Post Op Diagnosis: same Surgeon: Barry Rodgers DPM [place] Doctor(s): Staff Procedure: I&D R great toe fracture with pinning Findings: consistent with diagnosis. dorsal transverse laceration at base of hallux nail with visible and palpable bone of distal phalanx. no gross debris noted in wound. bleeds readily. capillary refill intact and brisk to digit. palpable DP pulse. nail removed. Irrigation with 9L NS with Gentamicin, followed by culture of the wound and pinning of fracture from distal tip of toe through fracture to proximal phalanx, but not into MTP joint. Closure primarily with 2-0 nylon, followed by adaptic, 4x4, cast padding, shama. Surgical shoe at all times. WBAT R foot. PT to eval for assistance with gait due to balance issues. IV antibiotics until cultures come back negative. Additional Information: 2g Ancef IV preop Complications: none Specimen(s) removed: culture R hallux Estimated blood loss: minimal Anesthesia: General, Local (20mL 0.25% marcaine plain) Drains: None IVF Tourniquet time (min at mmHg) none Patient to: PACU Patient Condition: Good Date/Time of Procedure: SEE SURGICAL CARE RECORD Barry Rodgers DPM Jun 30, 2016 07:00
[2016-06-30 08:39] LABS: SCAN/DIFF AUTO DIFF CONFIRMED
[2016-06-30] MEDS ORDERED: VANCOMYCIN 1,000 MG/NS 250 ML IV SCH ×2 (09:00)
[2016-06-30] MEDS ORDERED: MECLIZINE HCL 25 MG TAB PO PRN (09:45)
--- NOTE | 2016-06-30 09:53 | RADRPT ---
EXAM DATE/TIME: 06/30/2016 08:48 [facility] COMPARISON: No previous studies available for comparison. INDICATIONS : Post surgery right great toe, laceration from clam shell MEDICAL HISTORY : None. SURGICAL HISTORY : None. ENCOUNTER: Subsequent ACUITY: 2 days PAIN SCORE: 6/10 LOCATION: Right Foot FINDINGS: There is percutaneous pin fixation across a fracture of the distal phalanx great toe. Pin fixation ex tends across the interphalangeal joint of the great toe. There is anatomic alignment. No complication s. CONCLUSION: 1. Percutaneous pin fixation across a distal phalanx fracture of the great toe. Enmanuel Barker MD on June 30, 2016 at 9:49 Board Certified Radiologist. This report was verified electronically.
[2016-06-30] MEDS ORDERED: ePHEDrine/NS 25 MG/5 ML SYR IV ONE (10:02)
[2016-06-30] MEDS ORDERED: ONDANSETRON HCL 4 MG/2 ML VIAL IV PUSH ONE (10:02)
[2016-06-30] MEDS ORDERED: PHENYLEPH/NS 1000 MCG/10 ML SYR IV ONE (10:02)
[2016-06-30] MEDS ORDERED: LACTATED RINGER'S 1000 ML INJ 1,000 ML IV ONE (10:02)
[2016-06-30] MEDS ORDERED: PROPOFOL 200 MG/20 ML AMP IV ONE (10:02)
[2016-06-30] MEDS: DOCUSATE SODIUM 100 MG CAP PO SCH ×2 (11:06→20:22)
[2016-06-30] MEDS: SODIUM CHLORIDE 0.9% FLUSH 5 ML FLUSH FLUSH SCH ×2 (11:06→20:21)
[2016-06-30] MEDS ORDERED: TETANUS/DIPHTHERIA TOXOID ADULT 0.5 ML VIAL IM ONE (13:00)
[2016-06-30] MEDS: ceFAZolin 2 GM PREMIX 50 ML IV SCH ×2 (13:20→20:20)
[2016-06-30] MEDS: INSULIN ASPART SUPPLEMENTAL SCALE SQ SCH ×3 (13:20→20:20)
--- NOTE | 2016-06-30 13:28 | HHI.PR ---
Subjective Remarks Follow up for open toe fracture. The patient is seen post surgery today. Pain fairly well controlled. No fevers/chills. Patient believes his last Tetanus was over 5 years ago. He has no other medical complaints at this time. He wants to go home tomorrow. Objective Vitals Vital Signs Date Time Temp Pulse Resp B/P Pulse Ox O2 Delivery O2 Flow Rate FiO2 06/30/16 10:15 96 21 06/30/16 08:00 97.0 77 20 120/68 95 06/30/16 07:00 63 14 123/56 96 Room Air 06/30/16 06:45 66 14 112/70 97 Room Air 06/30/16 06:30 62 14 125/69 97 Room Air 06/30/16 06:15 69 14 120/67 95 Room Air 06/30/16 06:00 94 14 112/62 97 Room Air 06/30/16 05:50 97.8 82 17 118/65 97 Nasal Cannula 2 06/30/16 05:24 98.1 86 18 128/83 97 06/30/16 00:01 66 06/29/16 22:50 98.2 54 18 138/96 99 06/29/16 21:09 56 18 130/69 98 Room Air 06/29/16 19:21 67 16 123/67 97 Room Air 06/29/16 16:57 97.3 54 16 148/85 98 I/O 06/29/16 06/29/16 06/29/16 06/30/16 06/30/16 06/30/16 07:00 15:00 23:00 07:00 15:00 23:00 Intake Total 400 ml 700 ml Output Total 950 ml 5 ml Balance -550 ml 695 ml Intake IV Total 400 ml Other 700 ml Output Urine Total 950 ml Estimated Blood Loss 5 ml # Voids 2 Result Diagram: 06/30/166 06/30/16 0426 Imaging Last Impressions Foot X-Ray 06/30/16 0700 Signed Impressions: Service Date/Time: June 08:48 - CONCLUSION: 1. Percutaneous pin fixation across a distal phalanx fracture of the great toe. Enmanuel Barker MD Objective Remarks GENERAL: Well-nourished, well-developed pleasant elderly male patient in [place]. SKIN: Warm and dry. No rash. HEENT: Normocephalic. Atraumatic. Pupils equal and round. No scleral icterus. No injection or drainage. Mucous membranes pink and moist. NECK: Supple. Trachea midline. CARDIOVASCULAR: Regular rate and rhythm. S1, S2 noted. No murmur appreciated. Pacer at left upper chest. RESPIRATORY: No accessory muscle use. Clear to auscultation. Breath sounds equal bilaterally. GASTROINTESTINAL: Abdomen soft, non-tender, nondistended. Normoactive bowel sounds x4. MUSCULOSKELETAL: No obvious deformities. Extremities without clubbing, cyanosis , or edema. Right great toe with percutaneous pin fixation, wrapped in surgical dressing, CDI. Right foot in surgical shoe. NEUROLOGICAL: Awake and alert. No obvious cranial nerve deficits. Motor grossly within normal limits. 5/5 muscle strength in bilateral upper and lower extremities. Normal speech. PSYCHIATRIC: Appropriate mood and affect; insight and judgment normal. Medications and IVs Current Medications Medications (Trade) Dose Ordered Sig/Castro Route Start Time Stop Time Status Last Admin (NS Flush) 2 ml UNSCH PRN FLUSH 06/29/16 20:45 (NS Flush) 2 ml BID FLUSH 06/29/16 21:00 06/30/16 11:06 (Zofran Inj) 4 mg Q6H PRN IVP 06/29/16 20:45 Naloxone HCl 0.4 mg 0.4 mg UNSCH PRN IV 06/29/16 20:45 Pharmacy Profile Note 0 ml @ 0 mls/hr UNSCH OTHER 06/29/16 21:00 (Levaquin 750 Mg Premix Inj) 150 ml @ 100 mls/hr Q24H IV 06/30/16 21:00 (D50w (Vial) Inj) 25 ml UNSCH PRN IV PUSH 06/29/16 21:00 Glucagon 1 mg 1 mg UNSCH PRN OTHER 06/29/16 21:00 (Vancomycin Inj/ NS 250 ml Inj) 250 ml @ 250 mls/hr Q12H IV 06/30/16 09:00 06/30/16 11:06 Miscellaneous Information SPECIFIC LAB TO BE DRAWN:VANCO TROUGH DATE TO BE . ONCE ONCE XX 07/01/16 08:45 07/01/16 08:46 (Ancef 2 Gm Premix) 50 ml @ 100 mls/hr Q8H IV 06/30/16 13:00 Miscellaneous Information ALL NURSING DEPARTME... UNSCH PRN XX 06/30/16 06:30 07/01/16 06:29 (Tylenol) 650 mg Q4H PRN PO 06/30/16 07:00 (Dulcolax Supp) 10 mg DAILY PRN LA 06/30/16 07:00 (Colace) 100 mg Q12H PO 06/30/16 09:00 06/30/16 11:06 (Milk Of Sonny Liq) 30 ml Q12H PRN PO 06/30/16 07:00 (Senokot) 17.2 mg Q12H PRN PO 06/30/16 07:00 (Tylenol) 650 mg Q6H PRN PO 06/30/16 07:00 ([place] 5-325 Mg) 1 tab Q4H PRN PO 06/30/16 07:00 ([place] 7.5-325 Mg) 1 tab Q4H PRN PO 06/30/16 07:00 (Morphine Inj) 1 mg Q3H PRN IV 06/30/16 07:00 (Coreg) 6.25 mg BID PO 06/30/16 21:00 (KlonoPIN) 2 mg HS PO 06/30/16 21:00 (Lanoxin) 0.125 mg DAILY PO 07/01/16 09:00 (Aricept) 10 mg HS PO 06/30/16 21:00 (Lactinex) 2 tab DAILY PO 07/01/16 09:00 (Prinivil) 10 mg DAILY PO 07/01/16 09:00 (Antivert) 25 mg TID PRN PO 06/30/16 09:45 (Ditropan) 5 mg Q12HR PO 06/30/16 21:00 (Creon 24-76-120) 1 cap TIDPC PO 06/30/16 13:30 (Lyrica) 150 mg TID PO 06/30/16 13:00 (Januvia) 100 mg DAILY PO 07/01/16 09:00 (Flomax) 0.4 mg HS PO 06/30/16 21:00 Urinary Catheter: No Vascular Central Line Catheter: No A/P Problem List: (1) Open fracture of distal phalanx of right great toe ICD Code: S92.421B Status: Acute (2) Laceration of right great toe ICD Code: S91.111A Status: Acute Assessment and Plan 76-year-old male with hx of HTN, HLD, CAD, DM, prostate cancer, arthritis, childhood polio, presents with injury to the right great toe [place]16 Open fracture of distal phalanx of right great toe Laceration of right great toe - Consulted podiatry Dr. Rodgers - S/p I&D and percutaneous pin fixation on 06/30 - Continue antibiotics with IV Ancef and IV Levaquin (with exposure to ocean); discontinue Vanco - Continue surgical shoe at all times, WBAT - Await wound cultures prior to discharge, per podiatry - Consult physical therapy - Update tetanus vaccine Type 2 diabetes mellitus - Continue patient's Januvia - Monitor Accu-Cheks and cover with SSI - hypoglycemia protocol ordered HTN/CAD - Continue patient's lisinopril and coreg All other medical conditions stable, continue home medications as appropriate. DVT Prophylaxis: SCDs Written by Lo Velazquez, acting as scribe for Dr. Rendon on 06/30/16 at 10:50. All or portions of this note were transcribed by scribe []. I, Dr. Bruce Rendon personally performed the history, physical exam, and medical decision making; and confirmed the accuracy of the information in the transcribed note. Authenticated by Dr. Bruce Rendon on 06/30/16 at 15:03. Problem Qualifiers (1) Open fracture of distal phalanx of right great toe: Qualified Code: S92.424B - Open nondisplaced fracture of distal phalanx of right great toe, initial encounter (2) Laceration of right great toe: Qualified Code: S91.111A - Laceration of right great toe without foreign body present, nail damage status unspecified, initial encounter Lo Velazquez PA-C Jun 30, 2016 13:27 Bruce Rendon MD Jun 30, 2016 15:03
[2016-06-30] MEDS: PREGABALIN 75 MG CAP PO SCH ×2 (14:58→17:14)
[2016-06-30] MEDS: LIPASE/PROTEASE/AMYLASE (24,000/76,000/120,000) CAP PO SCH ×2 (14:58→17:14)
[2016-06-30] MEDS: CARVEDILOL 6.25 MG TAB PO SCH (20:20)
[2016-06-30] MEDS: DONEPEZIL HCL 5 MG TAB PO SCH (20:20)
[2016-06-30] MEDS: clonazePAM 1 MG TAB PO SCH (20:20)
[2016-06-30] MEDS: OXYBUTYNIN CHLORIDE 5 MG TAB PO SCH (20:20)
[2016-06-30] MEDS: TAMSULOSIN HCL 0.4 MG CAP PO SCH (20:20)
[2016-06-30] MEDS ORDERED: LEVOFLOXACIN 750 MG PREMIX INJ 150 ML IV SCH (21:00)
[2016-07-01] VITALS (8 sets, daily range): BP systolic 68–114; BP diastolic 39–69; PULSE 67–74; RESP 16–20; TEMP 95.5–98.3; O2SAT 95–98
[2016-07-01] MEDS: ceFAZolin 2 GM PREMIX 50 ML IV SCH ×3 (05:34→21:31)
[2016-07-01] MEDS: INSULIN ASPART SUPPLEMENTAL SCALE SQ SCH ×4 (05:34→21:00)
[2016-07-01] MEDS: OXYBUTYNIN CHLORIDE 5 MG TAB PO SCH ×2 (08:37→21:31)
[2016-07-01] MEDS: LIPASE/PROTEASE/AMYLASE (24,000/76,000/120,000) CAP PO SCH ×3 (08:37→18:30)
[2016-07-01] MEDS: LISINOPRIL 10 MG TAB PO SCH (08:37)
[2016-07-01] MEDS: LACTOBACILLUS ACIDOPHILUS TAB PO SCH (08:37)
[2016-07-01] MEDS: DIGOXIN 0.125 MG TAB PO SCH (08:37)
[2016-07-01] MEDS: CARVEDILOL 6.25 MG TAB PO SCH ×2 (08:37→21:34)
[2016-07-01] MEDS: DOCUSATE SODIUM 100 MG CAP PO SCH ×2 (08:38→21:31)
[2016-07-01] MEDS ORDERED: PHARMACY ORDERED LAB XX ONE (08:45)
[2016-07-01] MEDS: PREGABALIN 75 MG CAP PO SCH ×3 (09:00→18:00)
[2016-07-01] MEDS: SODIUM CHLORIDE 0.9% FLUSH 5 ML FLUSH FLUSH SCH ×2 (09:00→21:31)
[2016-07-01 10:02] LABS: AUTOMATED NEUTROPHIL # 8.8 TH/MM3 (1.8-7.7); BASOPHIL # 0.1 TH/MM3 (0-0.2); BASOPHIL % 0.9 % (0.0-2.0); EOSINOPHIL # 0.1 TH/MM3 (0-0.4); EOSINOPHIL % 0.4 % (0.0-4.0); HEMO FLAGS DIFF FINAL; LYMPH % 19.1 % (9.0-44.0); LYMPHOCYTE # 2.3 TH/MM3 (1.0-4.8); MEAN CELL VOLUME 89.3 FL (80.0-100.0); MEAN CORPUSCULAR HEMOGLOBIN 30.6 PG (27.0-34.0); MEAN CORPUSCULAR HGB CONC 34.3 % (32.0-36.0); MONO % 7.4 % (0.0-8.0); NEUT % 72.2 % (16.0-70.0); PLATELET COUNT 142 TH/MM3 (150-450); RED BLOOD COUNT 4.37 MIL/MM3 (4.50-5.90); RED CELL DISTRIBUTION WIDTH 13.8 % (11.6-17.2); WHITE BLOOD COUNT 12.2 TH/MM3 (4.0-11.0)
[2016-07-01 10:26] LABS: BICARBONATE 24.3 MEQ/L (21.0-32.0); MAGNESIUM 2.1 MG/DL (1.5-2.5); POTASSIUM 3.6 MEQ/L (3.5-5.1)
--- NOTE | 2016-07-01 14:26 | HHI.PR ---
Subjective Remarks Follow-up for open toe fracture. The patient denies any pain today. They have noted patient had blood pressure differences between each arm. He states that his PCP back in [place] at the [facility] noticed that he had asymmetrical BP in each arm. He denies any numbness, tingling, pain when he raises his arms for an extended period. Objective Vitals Vital Signs Date Time Temp Pulse Resp B/P Pulse Ox O2 Delivery O2 Flow Rate FiO2 07/01/16 12:00 95.7 72 20 107/69 98 07/01/16 08:20 21 07/01/16 08:00 97.7 74 16 96/60 96 07/01/16 03:55 98.3 71 16 68/42 95 96/62 07/01/16 00:00 98.0 67 16 100/59 97 77/39 06/30/16 20:00 98.3 76 18 111/64 96 06/30/16 16:00 98.0 80 20 102/57 96 I/O 06/30/16 06/30/16 06/30/16 07/01/16 07/01/16 07/01/16 07:00 15:00 23:00 07:00 15:00 23:00 Intake Total 700 ml 480 ml 950 ml 780 ml Output Total 5 ml 650 ml Balance 695 ml 480 ml 950 ml 130 ml Intake Oral 480 ml 720 ml 720 ml IV Total 230 ml 60 ml Other 700 ml Output Urine Total 650 ml Estimated Blood Loss 5 ml # Voids 3 3 # Bowel Movements 1 0 0 Result Diagram: 07/01/1638 07/01/16 0938 Imaging Last Impressions Foot X-Ray 06/30/16 07 Signed Impressions: Service Date/Time: June 08:48 - CONCLUSION: 1. Percutaneous pin fixation across a distal phalanx fracture of the great toe. Enmanuel Barker MD Objective Remarks GENERAL: Well-developed well-nourished. In no acute distress. SKIN: Warm and dry. Right foot is below. HEENT: Normocephalic. Pupils equal and round. Mucous membranes pink and moist. CARDIOVASCULAR: Regular rate and rhythm. No murmur appreciated. RESPIRATORY: No accessory muscle use. Clear to auscultation. Breath sounds equal bilaterally. GASTROINTESTINAL: Abdomen soft, non-tender, nondistended. Bowel sounds x4. MUSCULOSKELETAL: Right great toe with percutaneous pin fixation, wrapped in surgical dressing. Right foot and surgical shoe. No asymmetry of bilateral upper extremities. Upper extremity pulses 2+. No clubbing or cyanosis. No edema. NEUROLOGICAL: Awake and alert. No focal neurological deficits. Moves upper and lower extremities spontaneously. Normal speech. PSYCHIATRIC: Appropriate mood and affect; insight and judgment normal. A/P Problem List: (1) Open fracture of distal phalanx of right great toe ICD Code: S92.421B Status: Acute (2) Laceration of right great toe ICD Code: S91.111A Status: Acute Assessment and Plan 76-year-old male with hx of HTN, HLD, CAD, DM, prostate cancer, arthritis, childhood polio, presents with injury to the right great toe while [place] ocean [place]16 Open fracture of distal phalanx of right great toe Laceration of right great toe - Consulted podiatry Dr. Rodgers - S/p I&D and percutaneous pin fixation on 06/30 - Continue antibiotics with IV Ancef. IV Levaquin (with exposure to ocean) change to oral per protocol - Continue surgical shoe at all times, WBAT - Await wound cultures prior to discharge, per podiatry, cultures NGTD - Consulted physical therapy, HHC vs SNF, case management consult - Updated tetanus vaccine Type 2 diabetes mellitus - Continue patient's Januvia - Monitor Accu-Cheks and cover with SSI - hypoglycemia protocol ordered HTN/CAD - Continue patient's lisinopril and Coreg All other medical conditions stable, continue home medications as appropriate. DVT Prophylaxis: SCDs Written by Alin Banda, acting as scribe for Dr. Rendon on 07/01/16 at 14:24. All or portions of this note were transcribed by scribe []. I, Dr. Bruce Rendon personally performed the history, physical exam, and medical decision making; and confirmed the accuracy of the information in the transcribed note. Authenticated by Dr. Bruce Rendon on 07/01/16 at 15:46. Discharge Planning Follow-up wound culture Problem Qualifiers (1) Open fracture of distal phalanx of right great toe: Qualified Code: S92.424B - Open nondisplaced fracture of distal phalanx of right great toe, initial encounter (2) Laceration of right great toe: Qualified Code: S91.111A - Laceration of right great toe without foreign body present, nail damage status unspecified, initial encounter Alin Banda Jul 01, 2016 14:26 Bruce Rendon MD Jul 01, 2016 15:46
--- NOTE | 2016-07-01 17:21 | PD.POD ---
Subjective Podiatric Problems Open fracture R great toe, s/p I&D with pinning 06/30/16 Past Med/Surg/Social History Social History Smoking Status: Current Every Day Smoker Objective Vital Signs Vital Signs Date Time Temp Pulse Resp B/P Pulse Ox O2 Delivery O2 Flow Rate FiO2 07/01/16 12:00 95.7 72 20 107/69 98 07/01/16 08:20 21 07/01/16 08:00 97.7 74 16 96/60 96 07/01/16 03:55 98.3 71 16 68/42 95 96/62 07/01/16 00:00 98.0 67 16 100/59 97 77/39 06/30/16 20:00 98.3 76 18 111/64 96 Coded Allergies: No Known Allergies (Unverified , 06/29/16) Assessment & Plan A/P Open fracture R great toe, s/p I&D with pinning 06/30/16 Culture with no growth in 24 hours. Ok to d/c on broad spectrum oral abx x 2 weeks. Keep dressing clean, dry, intact. Follow up in my clinic in 1 week Wear surgical shoe at all times R foot. Weightbearing as tolerated in surgical shoe at all times, even in bed. Barry Rodgers DPM Jul 01, 2016 17:21
[2016-07-01] MEDS ORDERED: LEVOFLOXACIN 750 MG TAB PO SCH (21:00)
[2016-07-01] MEDS: TAMSULOSIN HCL 0.4 MG CAP PO SCH (21:31)
[2016-07-01] MEDS: clonazePAM 1 MG TAB PO SCH (21:31)
[2016-07-01] MEDS: DONEPEZIL HCL 5 MG TAB PO SCH (21:32)
[2016-07-02] VITALS: BP 108/57; PULSE 66; RESP 22; TEMP 97; O2SAT 96
[2016-07-02 04:00] VITALS: BP 100/54; PULSE 68; RESP 20; TEMP 98.6; O2SAT 94
[2016-07-02 05:37] LABS: AUTOMATED NEUTROPHIL # 5.6 TH/MM3 (1.8-7.7); BASOPHIL # 0.1 TH/MM3 (0-0.2); BASOPHIL % 0.7 % (0.0-2.0); EOSINOPHIL # 0.3 TH/MM3 (0-0.4); EOSINOPHIL % 3.6 % (0.0-4.0); HEMATOCRIT 38.7 % (39.0-51.0); HEMO FLAGS DIFF FINAL; LYMPH % 29.5 % (9.0-44.0); LYMPHOCYTE # 2.9 TH/MM3 (1.0-4.8); MEAN CELL VOLUME 89.2 FL (80.0-100.0); MEAN CORPUSCULAR HGB CONC 34.7 % (32.0-36.0); MONO % 8.5 % (0.0-8.0); NEUT % 57.7 % (16.0-70.0); PLATELET COUNT 149 TH/MM3 (150-450); RED BLOOD COUNT 4.34 MIL/MM3 (4.50-5.90); RED CELL DISTRIBUTION WIDTH 13.8 % (11.6-17.2); WHITE BLOOD COUNT 9.8 TH/MM3 (4.0-11.0)
[2016-07-02] MEDS: ceFAZolin 2 GM PREMIX 50 ML IV SCH (06:06)
[2016-07-02] MEDS: INSULIN ASPART SUPPLEMENTAL SCALE SQ SCH (07:00)
[2016-07-02 07:41] VITALS: BP 108/55; PULSE 73; RESP 18; TEMP 98; O2SAT 96
[2016-07-02 08:32] VITALS: PULSE 67
[2016-07-02] MEDS: DIGOXIN 0.125 MG TAB PO SCH (09:08)
[2016-07-02] MEDS: CARVEDILOL 6.25 MG TAB PO SCH (09:08)
[2016-07-02] MEDS: LISINOPRIL 10 MG TAB PO SCH (09:08)
[2016-07-02] MEDS: PREGABALIN 75 MG CAP PO SCH ×2 (09:08→13:10)
[2016-07-02] MEDS: DOCUSATE SODIUM 100 MG CAP PO SCH (09:08)
[2016-07-02] MEDS: OXYBUTYNIN CHLORIDE 5 MG TAB PO SCH (09:08)
[2016-07-02] MEDS: LIPASE/PROTEASE/AMYLASE (24,000/76,000/120,000) CAP PO SCH ×2 (09:09→13:10)
[2016-07-02] MEDS: LACTOBACILLUS ACIDOPHILUS TAB PO SCH (09:09)
[2016-07-02] MEDS: SODIUM CHLORIDE 0.9% FLUSH 5 ML FLUSH FLUSH SCH (09:09)
[2016-07-02] MEDS ORDERED: DOXY1CAP91 PO (10:48)
[2016-07-02] MEDS ORDERED: LEVA750T PO (10:48)
--- NOTE | 2016-07-02 10:49 | HHI.DCPOC ---
Discharge Care Plan Diagnosis: (1) Laceration of right great toe (2) Open fracture of distal phalanx of right great toe Your Health Problems Are: Difficulty with ADL Exercise Tolerance Goals to Promote Your Health * To prevent worsening of your condition and complications * To maintain your health at the optimal level Directions to Meet Your Goals Take your medications as prescribed Follow your dietary instruction Follow activity as directed Keep your appointments as scheduled Take your immunizations and boosters as scheduled If your symptoms worsen call your PCP, if no PCP go to Urgent Care Center or Emergency Room Smoking is Dangerous to Your Health. Avoid second hand smoke Call the 24-hour hour crisis hotline for domestic abuse at Bruce Rendon MD Jul 02, 2016 10:49
--- NOTE | 2016-07-02 10:51 | HHI.DS ---
Discharge Summary Admission Date Jun 29, 2016 at 20:44 Discharge Date: Jul 02, 2016 Admitting Diagnosis open fracture right great toe (1) Open fracture of distal phalanx of right great toe ICD Code: S92.421B Diagnosis: Principal (2) Laceration of right great toe ICD Code: S91.111A Diagnosis: Principal Procedures I&D right great toe fracture with pinning on 06/30/16 Brief History - From Admission Mr. Winn is a 76-year-old male with a past medical history of type 2 diabetes mellitus, hypertension, coronary artery disease status post stent placement, defibrillator/pacemaker, and prostate cancer who presented to the emergency room for evaluation of a wound on his foot. The patient was brought in via EMS and the emergency room physician critical care physician assistant notes that his right great toe was "partially hanging on". X-ray in the ER shows fracture of distal phalanx of the great toe. The patient reports that he was out [place] in the surface of the beach with a friend. He states that the tide was coming in and they kept having to get up and move their chairs out further away from the deeper water. During the last time that they move their chairs, his friends have blue into the circumflex that he chased after and felt something sharp on his toe. He states he didn't even realize he had cut the toe until he went to put his shoe on. He states it was a partially buried upright clamshell that he had stepped on. He denies any pain. He denies any history of liver or kidney problems, breathing problems, and denies requiring home oxygen. He denies chest pain, shortness of breath, nausea , vomiting, fevers. He does report an intentional weight loss since January that he relates to chronic diarrhea. He has some urinary frequency and hesitancy since prostate cancer treatment. He also reports some gait instability with that he was supposed to start physical therapy for this week. . CBC/BMP: 07/02/16 0436 07/01/16 0938 Significant Findings Laboratory Tests Test 06/29/16 06/30/16 07/01/16 07/02/16 18:00 04:26 09:38 04:36 Estimat Glomerular Filtration 73 ML/MIN (>89) 80 ML/MIN (>89) 61 ML/MIN (>89) Rate Random Glucose 131 MG/DL 117 MG/DL 133 MG/DL (74-106) (74-106) (74-106) Aspartate Amino Transf 53 U/L (15-37) (AST/SGOT) Alkaline Phosphatase 119 U/L (45-117) Mean Corpuscular Hemoglobin 36.3 % Concent (32.0-36.0) Eosinophils (%) (Auto) 4.2 % (0.0-4.0) Potassium Level 3.3 MEQ/L (3.5-5.1) Chloride Level 108 MEQ/L (98-107) Calcium Level 8.4 MG/DL (8.5-10.1) White Blood Count 12.2 TH/MM3 (4.0-11.0) Red Blood Count 4.37 MIL/MM3 4.34 MIL/MM3 (4.50-5.90) (4.50-5.90) Platelet Count 142 TH/MM3 149 TH/MM3 (150-450) (150-450) Neutrophils (%) (Auto) 72.2 % (16.0-70.0) Neutrophils # (Auto) 8.8 TH/MM3 (1.8-7.7) Hematocrit 38.7 % (39.0-51.0) Monocytes (%) (Auto) 8.5 % (0.0-8.0) Imaging Last Impressions Foot X-Ray 06/30/16 0700 Signed Impressions: Service Date/Time: June 08:48 - CONCLUSION: 1. Percutaneous pin fixation across a distal phalanx fracture of the great toe. Enmanuel Barekr MD PE at Discharge GENERAL: Well-developed well-nourished. In no acute distress. SKIN: Warm and dry. Right foot is below. HEENT: Normocephalic. Pupils equal and round. Mucous membranes pink and moist. CARDIOVASCULAR: Regular rate and rhythm. No murmur appreciated. RESPIRATORY: No accessory muscle use. Clear to auscultation. Breath sounds equal bilaterally. GASTROINTESTINAL: Abdomen soft, non-tender, nondistended. Bowel sounds x4. MUSCULOSKELETAL: Right great toe with percutaneous pin fixation, wrapped in surgical dressing. Right foot and surgical shoe. No clubbing or cyanosis. No edema. NEUROLOGICAL: Awake and alert. No focal neurological deficits. Moves upper and lower extremities spontaneously. Normal speech. PSYCHIATRIC: Appropriate mood and affect; insight and judgment normal. Pt update on day of discharge The patient is doing well this time and wants to go home. He states he's been showed how to change the dressing on his foot. He plans to follow-up with his PCP for referral to podiatry back in [place]. Hospital Course 76-year-old male with hx of HTN, HLD, CAD, DM, prostate cancer, arthritis, childhood polio, presents with injury to the right great toe while fishing in the ocean on 06/29/16 Open fracture of distal phalanx of right great toe Laceration of right great toe - Consulted podiatry Dr. Rodgers - S/p I&D and percutaneous pin fixation on 06/30 - Continue antibiotics with IV Ancef. IV Levaquin (with exposure to ocean) change to oral per protocol - Continue surgical shoe at all times, WBAT - Wound cultures negative to date - Clear by podiatry for DC on broad-spectrum antibiotics - Consulted physical therapy, HHC vs SNF, case management consult - Updated tetanus vaccine Type 2 diabetes mellitus - Continue patient's Januvia - Monitored Accu-Cheks and covered with SSI while in the hospital HTN/CAD - Continue patient's lisinopril and Coreg All other medical conditions stable, continue home medications as appropriate. Pt Condition on Discharge: Stable Discharge Disposition: Disch w/ Home Health Serv Discharge Time: > 30 minutes Discharge Instructions DIET: Follow Instructions for: Diabetic Diet Activities you can perform: Regular-No Restrictions, Weight Bearing as Ugo Other Activity Instructions: surgical shoe at all times Follow up Referrals: PCP Follow-up - 1 Week Podiatry - 1 Week New Medications: Doxycycline (Monohydrate) (Doxycycline) 100 Mg Cap 100 MG PO BID Infection #28 MG Levofloxacin (Levaquin) 750 Mg Tab 750 MG PO Q24H Infection #14 TAB Continued Medications: Carvedilol (Carvedilol) 6.25 Mg Tab 6.25 MG PO BID #60 Ref 0 TAB Clonazepam (Clonazepam) 2 Mg Tab 2 MG PO HS #60 Ref 0 TAB Digoxin (Digoxin) 0.125 Mg Tab 0.125 MG PO DAILY Regulate Heart Beat #30 Ref 0 TAB Donepezil (Donepezil) 10 Mg Tab 10 MG PO HS Dementia #30 Ref 0 TAB Lactobacillus Acidophilus (Lactobacillus Acidophilus) 1 Tab Tab 2 TAB PO DAILY Nutritional Supplement #60 Ref 0 TAB Lisinopril (Lisinopril) 10 Mg Tab 10 MG PO DAILY #30 Ref 0 TAB Meclizine (Meclizine) 25 Mg Tab 25 MG PO TID PRN VERTIGO Ref 0 TAB Oxybutynin (Ditropan) 5 Mg Tab 5 MG PO Q12HR Urinary Symptom Managemen #60 Ref 0 TAB Pancrelipase (Creon) 24,000-76,000-120,000 Units Cap 1 CAP PO TIDPC Digestive Aid #90 Ref 0 CAP Pregabalin (Lyrica) 150 Mg Cap 150 MG PO TID #90 Ref 0 CAP Sitagliptin (Januvia) 100 Mg Tab 100 MG PO DAILY Blood Sugar Management #30 Ref 0 TAB Tamsulosin (Tamsulosin) 0.4 Mg Cap 0.4 MG PO HS Manage Prostate Problems #30 Ref 0 CAP Additional Information Written by Alin Banda, acting as scribe for Dr. Rendon on 07/02/16 at 10:51. Alin Banda Jul 02, 2016 10:51 Alin Banda Jul 02, 2016 10:51
--- NOTE | 2016-07-02 10:52 | HHI.FF ---
Face to Face Verification Diagnosis: (1) Laceration of right great toe (2) Open fracture of distal phalanx of right great toe Physical Therapy Order: Evaluate and Treat, Improve ambulation, Strength and gait training I have seen patient Usman Winn on 07/02/16. My clinical findings support the need for the requested home health care services because: Ltd mobility - disease progression Deconditioned w/ increased weakness I certify that my clinical findings support that this patient is homebound because: Unsafe to leave home unassisted Bruce Rendon MD Jul 02, 2016 10:52
--- NOTE | 2016-07-02 10:56 | PD.POD ---
Subjective Podiatric Problems Open fracture R great toe, s/p I&D with pinning 06/30/16 Past Med/Surg/Social History Social History Smoking Status: Current Every Day Smoker Objective Vital Signs Vital Signs Date Time Temp Pulse Resp B/P Pulse Ox O2 Delivery O2 Flow Rate FiO2 07/02/16 08:32 67 07/02/16 07:41 98.0 73 18 108/55 96 07/02/16 04:00 98.6 68 20 100/54 94 07/02/16 00:00 97.0 66 22 108/57 96 07/01/16 21:00 67 07/01/16 20:00 96.5 67 20 114/67 96 07/01/16 18:26 98 21 07/01/16 16:00 95.5 69 20 106/65 98 07/01/16 12:00 95.7 72 20 107/69 98 Coded Allergies: No Known Allergies (Unverified , 06/29/16) Physical Exam Remarks bandage clean, dry, intact R foot. Surgical shoe on Assessment & Plan A/P Open fracture R great toe, s/p I&D with pinning 06/30/16 Culture with no growth. Ok to d/c on broad spectrum oral abx x 2 weeks. Keep dressing clean, dry, intact. Follow up with his PCP upon arrival to [place] Bandage can be changed per orders prior to d/c Ok with d/c today anytime. Wear surgical shoe at all times R foot. Weightbearing as tolerated in surgical shoe at all times, even in bed. Microbiology Date/Time Procedure Status Source Growth 06/30/16 06:00 Gram Stain - Final Resulted Wound Toe 06/30/16 06:00 Wound Culture - Preliminary Resulted Wound Toe NO GROWTH IN 48 HOURS. 06/30/16 06:00 Fungal Smear - Final Resulted Wound Toe NO FUNGAL ELEMENTS SEEN. 06/30/16 06:00 Fungal Culture Resulted Wound Toe Pending 06/30/16 06:00 Acid Fast Stain - Final Resulted Wound Toe NO ACID FAST BACILLI SEEN 06/30/16 06:00 Mycobacterial Culture Resulted Wound Toe Pending Barry Rodgers DPM Jul 02, 2016 10:56
[2016-07-02 12:00] VITALS: BP 124/68; PULSE 72; RESP 18; TEMP 96.2; O2SAT 95
--- NOTE | 2016-07-07 09:05 | MP ---
cc: BARRY PEDROZA OMAR DATE OF SURGERY: 06/30/2016 DATE OF 1940 INDICATION The patient presented to the [place] emergency department after stating that he was fishing beach [place] in the water and was going back to retrieve something from the sand and his right great toe bent back and he states that he cut the top of the toe on a shell and the oyster shell cut the toe all the way down to the bone and he noticed that there was bone present in that area. He went to the emergency department in [place] where he was seen, they consulted me. I discussed with them that the patient needed to be transferred to the [facility] hospital to undergo an I&D of the right great toe with possible pinning of the open fracture and was started on antibiotics with tetanus prophylaxis. The patient was then transferred over to the [facility] hospital where he was seen. I discussed with him the risks, benefits, potential complications of surgery and he proceeded to sign consent for surgery. PROCEDURE The patient was seen in preop holding by myself, nursing staff and Anesthesia where the correct patient, side and site were noted to be correct in the right great toe. He was taken back to the surgical suite, placed in supine position where timeouts were performed as per hospital protocol, followed by the right foot being prepped and draped in normal sterile fashion. It was noted to have a dorsal transverse laceration noted at around the base of the hallux toenail with visible and palpable bone of the distal phalanx. There was no gross debris noted within the wound at the time and it was bleeding readily but not actively bleeding. Capillary refill was intact to the distal digit as well with a palpable dorsalis pedis pulse. The nail was removed followed by irrigation of the fracture area and wound with 9 liters of normal sterile saline with gentamicin added. Following irrigation the area was cultured with a swab, followed by pinning of the fracture from the distal aspect of the interphalangeal joint into the proximal phalanx. The [facility] was called, they were notified of the case over 6 hours prior to the case and were called again and did not show up, however, it was visualized through the dorsal wound, the reduction of the fracture and the reapproximation of the ends of the fracture and the pin was placed on top of the toe to guide the approximate length of the pin required in order to fixate the fracture adequately. One pin 0.62 K-wire was utilized followed by a Cassie ball placed on the tip of the pin followed by closure of the wound primarily with 2-0 nylon suture. A dressing consisting of Adaptic, 4x4, cast bandage was applied to the right foot. He tolerated the procedure and anesthesia well without complications and was taken back to PACU with vital signs stable and vascular status intact to the right foot. SURGEON Dr. Barry Pedroza. CHIEF STATION ENGINEER Staff. PREOPERATIVE DIAGNOSIS Open fracture right great toe distal phalanx , displaced and extraarticular. POSTOPERATIVE DIAGNOSIS Open fracture right great toe distal phalanx , displaced and extraarticular. PROCEDURE I&D right great toe fracture with pinning. PROPHYLAXIS 2 grams Ancef IV preop, the patient is also on Levaquin IV as well. ANESTHESIA General endotracheal anesthesia plus 20 mL of 0.25% Marcaine plain. ESTIMATED BLOOD LOSS Minimal. PATHOLOGY Culture right hallux. COMPLICATIONS None. CONDITION Stable to PACU. DISPOSITION Weightbearing as tolerated with the right foot surgical shoe. Physical therapy will evaluate and treat for gait assistance due to balance issues and the patient will be on IV antibiotics for a minimum of 24 hours until cultures come back negative, to determine whether further surgical versus outpatient treatment is required. 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 Barry Pedroza HM/TLL /8:22 AM /7:37 AM
== END 2016-07-02 13:49 | disposition home health service (06) | DRG 505 ==
LOC: PHEFT 16:49 → PHEDA 19:06 → OBSVTOIN 20:44 → NEPGCP 22:43 → N06B 06-30 08:11
PROVIDERS: ADMIT Internal Medicine; ATTEND Internal Medicine
PROC: 0HTRXZZ Resection of Toe Nail, External Approach (ICD-10-PCS; 2016-06-30)
PROC: 0QSQ34Z Reposition Right Toe Phalanx with Internal Fixation Device, Percutaneous Approach (ICD-10-PCS; principal; 2016-06-30 05:10)
DX: S92.421B Displaced fracture of distal phalanx of right great toe, initial encounter for open fracture (principal); E11.9 Type 2 diabetes mellitus without complications; I10 Essential (primary) hypertension; I25.10 Atherosclerotic heart disease of native coronary artery without angina pectoris; E78.5 Hyperlipidemia, unspecified; M19.90 Unspecified osteoarthritis, unspecified site; G47.33 Obstructive sleep apnea (adult) (pediatric); I25.2 Old myocardial infarction; Z23 Encounter for immunization; Z79.84 Long term (current) use of oral hypoglycemic drugs; Z95.5 Presence of coronary angioplasty implant and graft; Z85.46 Personal history of malignant neoplasm of prostate; Z92.3 Personal history of irradiation; Z87.891 Personal history of nicotine dependence; Z95.1 Presence of aortocoronary bypass graft; Z95.810 Presence of automatic (implantable) cardiac defibrillator; W45.8XXA Other foreign body or object entering through skin, initial encounter; Y93.89 Activity, other specified; Y92.832 Beach as the place of occurrence of the external cause
CPT/HCPCS: 73630; 80048; 80053; 82948; 83735; 85025; 85610; 85730; 87015; 87070; 87102; 87116; 87205; 87206; 90714; 96374; J0690; J1580; J1815; J1956; J2370; J2405; J3010; J3370; J7050; J7120